=== PATIENT | male | born 1980 | race Caucasian/White ===

== ENCOUNTER 2017-02-02 20:03 | Emergency (ER) | payer SELFPAY ==
--- NOTE | ~2017-02-02 | CT101 ---
[facility] A Service of [facility] RADIOLOGY TEXT RESULTS PATIENT: MUNIR DESOUZA LOCATION: [facility] : 84 UNIT #: [id number] AGE: [address]: NEY FERRIS APRN SEX: M ORDER DR: [id number] [facility] [address] [place], [place] [address] [id number] E MR#: [id number] Acc #: [id number] NAME: MUNIR DESOUZA : 1980 SEX: M STUDY DATE/TIME: 02/02/2017 22:21 UNIT: [facility] ROOM: STUDY DESCRIPTION: CT Maxillofacial Area Wo Cont Attending Physician: Ney Ferris Aprn Ordering Physician: Ney Ferris Aprn Primary Care Physician: No Primary Care Physician MEDICAL IMAGING REPORT This report is preliminary unless electronic signature is present FINDINGS CT scan of the facial bones without contrast 02/02/2017 HISTORY Facial bone pain, nasal pain, laceration to nose status post fall on gravel 01/23/1817 in the morning. FINDINGS Spiral CT was performed through the facial bones without contrast administration. Sagittal and coronal reconstructions were then performed through the facial bones. This CT exam was performed with one or more of the following radiation dose reduction techniques: automatic control, adjustment of mA and/or kV according to patient size, and iterative reconstruction. There is no CT evidence of facial bone fracture. The orbits appear normal. The visualized paranasal sinuses are clear. Soft tissue swelling and hematoma overlies the nasal bones and the midline of the frontal scalp. IMPRESSION 1. No CT evidence of facial bone fracture. 2. Soft tissue swelling and hematoma overlying the nasal bones and midline of the frontal scalp. Dictated by... Gonzales Barney M.D. THIS IS AN ELECTRONICALLY VERIFIED REPORT Gonzales Barney M.D. at 02/05/2017 8:27 AM MEAGHAN/jorden TD: 02/03/2017 03:39 JOB #: [id number] [facility] A Service of [facility] RADIOLOGY TEXT RESULTS PATIENT: MUNIR DESOUZA LOCATION: [facility] : 84 UNIT #: [id number] AGE: [address]: NEY FERRIS APRN SEX: M ORDER DR: MEDICAL IMAGING REPORT Page 1 of 1 COPY
--- NOTE | ~2017-02-02 | CT71 ---
[facility] A Service of [facility] RADIOLOGY TEXT RESULTS PATIENT: MUNIR DESOUZA LOCATION: [facility] : 82 UNIT #: [id number] AGE: [address]: NEY FERRIS APRN SEX: M ORDER DR: [id number] [facility] [address] [place], [place] [address] [id number] E MR#: [id number] Acc #: [id number] NAME: MUNIR DESOUZA : 1980 SEX: M STUDY DATE/TIME: 02/02/2017 22:21 UNIT: [facility] ROOM: STUDY DESCRIPTION: CT Head Wo Contrast Attending Physician: Ney Ferris Aprn Ordering Physician: Ney Ferris Aprn Primary Care Physician: No Primary Care Physician MEDICAL IMAGING REPORT This report is preliminary unless electronic signature is present EXAM Head CT without contrast 02/02/2017 HISTORY Head trauma status post fall on gravel this morning. Diffuse head pain, laceration to nose and face. FINDINGS Multiple axial images were obtained from the skull base to vertex without intravenous contrast administration. This CT exam was performed with one or more of the following radiation dose reduction techniques: automatic control, adjustment of mA and/or kV according to patient size, and iterative reconstruction. The ventricles are normal in size, shape and position. There is no midline shift. There is no mass or mass effect, hemorrhage or acute infarct. The visualized paranasal sinuses are clear. Frontal scalp edema is noted. IMPRESSION Frontal scalp edema. No acute intracranial abnormality. Dictated by... Gonzales Barney M.D. THIS IS AN ELECTRONICALLY VERIFIED REPORT Gonzales Barney M.D. at 02/05/2017 8:27 AM MEAGHAN/jorden TD: 02/03/2017 02:39 JOB #: [id number] MEDICAL IMAGING REPORT [facility] A Service of [facility] RADIOLOGY TEXT RESULTS PATIENT: MUNIR DESOUZA LOCATION: [facility] : 84 UNIT #: [id number] AGE: [address]: NEY FERRIS APRN SEX: M ORDER DR: Page 1 of 1 COPY
== END 2017-02-02 23:36 | disposition home or self-care (01) ==
LOC: CFTX 20:03 → CED 20:03 → CFTX 21:57
DX: S00.83XA Contusion of other part of head, initial encounter (principal); W19.XXXA Unspecified fall, initial encounter; Y92.410 Unspecified street and highway as the place of occurrence of the external cause
CPT/HCPCS: 70450; 70486; 99283

== ENCOUNTER 2017-04-02 01:47 | Emergency (ER) | payer SELFPAY | END 2017-04-02 04:30 | disposition left against medical advice (07) | LOC: CED 01:47 | DX: Z53.21 Procedure and treatment not carried out due to patient leaving prior to being seen by health care provider (principal) ==